=== PATIENT | male | born 1950 | race Caucasian/White ===

== ENCOUNTER 2019-05-20 06:00 | Outpatient (RCR) | payer MEDICARE, BC, SELFPAY | END 2019-06-19 00:01 | LOC: TPT 06:00 | PROVIDERS: Family Provider Nurse Practitioner Family; Visit Provider Internal Medicine | DX: M25.511 Pain in right shoulder (principal) | CPT/HCPCS: 97110 ×9; 97140 ×7; 97164; 97530 ==

== ENCOUNTER 2019-06-20 13:13 | Outpatient (RCR) | payer MEDICARE, BC, SELFPAY | END 2019-06-20 23:00 | disposition home or self-care (01) | LOC: TPT 13:13 | PROVIDERS: Family Provider Nurse Practitioner Family; PCP Nurse Practitioner Family; Visit Provider Internal Medicine | DX: M75.51 Bursitis of right shoulder (principal) ==